=== PATIENT | female | born 1980 | race Caucasian/White ===

== ENCOUNTER 2016-03-10 21:53 | Emergency (ER) | payer OTHER ==
[~2016-03-10] VITALS: Ht 160 cm; Wt 57.7 kg
[2016-03-10] MEDS ORDERED: NAPROSYN500 MG PO (23:26)
[2016-03-10] MEDS ORDERED: ROBAXIN750 MG PO (23:26)
[2016-03-10 23:40] VITALS: BP 138/99
== END 2016-03-10 23:40 | disposition home or self-care (01) ==
LOC: EME 21:53
DX: S20.211A Contusion of right front wall of thorax, initial encounter (principal); F17.200 Nicotine dependence, unspecified, uncomplicated; V48.0XXA Car driver injured in noncollision transport accident in nontraffic accident, initial encounter
CPT/HCPCS: 71101; 99281; 99283

== ENCOUNTER 2017-03-12 13:11 | Emergency (ER) | payer OTHER ==
[~2017-03-12] VITALS: Ht 160 cm; Wt 56.7 kg
[~2017-03-12 13:11] MED LIST: NAPROSYN500 MG PO; ROBAXIN750 MG PO
[2017-03-12] MEDS ORDERED: TRAMADOL HCL50 MG PO (16:56)
[2017-03-12] MEDS ORDERED: MEDROL DOSEPAK4 MG PO (17:21)
[2017-03-12] MEDS ORDERED: SKELAXIN800 MG PO (17:21)
[2017-03-12 17:46] VITALS: BP 111/75
== END 2017-03-12 17:47 | disposition home or self-care (01) ==
LOC: EME 13:11
DX: M54.2 Cervicalgia (principal); G89.29 Other chronic pain; F17.200 Nicotine dependence, unspecified, uncomplicated; V89.2XXD Person injured in unspecified motor-vehicle accident, traffic, subsequent encounter; Z79.891 Long term (current) use of opiate analgesic; Z88.8 Allergy status to other drugs, medicaments and biological substances
CPT/HCPCS: 99281; 99283